=== PATIENT | male | born 1985 | race American Indian/Alaskan Native ===

== ENCOUNTER 2022-07-05 08:38 | Emergency (ER) | payer OTHER ==
[2022-07-05] MEDS ORDERED: oxyCODONE /ACETAMINOPHEN 5-325MG TAB PO NR (08:52)
[2022-07-05] MEDS ORDERED: KETOROLAC 10 MG TAB PO NR (08:52)
[2022-07-05] MEDS ORDERED: CYCLOBENZAPRINE 10 MG TAB PO NR (08:52)
[2022-07-05 08:54] VITALS: BP 107/82
--- NOTE | 2022-07-05 09:18 | XRay Report ---
CHEST 2 VIEWS INDICATION / CLINICAL INFORMATION: chest pain. COMPARISON: None available. FINDINGS: SUPPORT DEVICES: None. HEART / MEDIASTINUM: No significant abnormality. LUNGS / PLEURA: No significant pulmonary or pleural abnormality. No pneumothorax. ADDITIONAL FINDINGS: No significant additional findings. IMPRESSION: 1. No acute findings. Signer Name: Van Freeman Jr, MD Signed: 07/05/2022 9:14 AM Workstation Name: [id number]
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
[2022-07-05] MEDS ORDERED: CYCLOBENZAPRINE 10 MG TAB PO ONE (12:52)
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
[2022-07-05] MEDS ORDERED: LORazepam 2 MG/ML VIAL ONE (18:42)
--- NOTE | 2022-07-06 11:08 | Electrocardiograph Report ---
[facility] Test Date: 2022-07-05 Test Time: 08:46:00 Pat Name: KEILA MONTEIRO Department: Room: Gender: M Manager Transport: DIOGO : 1985 Requested By: LUKAS KINNEY Order Number: [id number] Reading MD: Arsalan Eugene Measurements Intervals [place] Rate: 56 P: 62 [place]: 168 QRS: 26 QRSD: 90 T: 11 QT: 371 QTc: 357 Interpretive Statements Sinus rhythm ST elev, probable normal early repol pattern No previous ECG available for comparison Electronically Signed On 07-06-2022 11:08:24 EDT by Arsalan Eugene
== END 2022-07-05 13:11 | disposition home or self-care (01) ==
LOC: ED 08:38
DX: M54.2 Cervicalgia (principal); M54.9 Dorsalgia, unspecified; V89.2XXA Person injured in unspecified motor-vehicle accident, traffic, initial encounter; Y93.89 Activity, other specified; Y92.89 Other specified places as the place of occurrence of the external cause; Y99.8 Other external cause status
CPT/HCPCS: 71046; 72125; 72128; 93005; 99284; J2060